=== PATIENT | female | born 1960 | race Caucasian/White ===

== ENCOUNTER → 2017-09-26 | Outpatient (CLI) | payer OTHER | END | disposition home or self-care (01) | LOC: KCIC MRI 08:08 | DX: M75.112 Incomplete rotator cuff tear or rupture of left shoulder, not specified as traumatic (principal); M62.58 Muscle wasting and atrophy, not elsewhere classified, other site; M94.212 Chondromalacia, left shoulder; M25.412 Effusion, left shoulder | CPT/HCPCS: 73221 ==

== ENCOUNTER → 2017-12-24 | Outpatient (CLI) | payer OTHER ==
[~2017-12-24] MED LIST: ASPI1TAB21 PO; ATOR40TA59 PO; INSU300I SQ; METF500T16 PO; MULT1CAP15 PO; OMEG1CAP27 PO; SITA100T PO; UBID100C26 PO; VITA1CAP PO; VITA400C36 PO
--- NOTE | 2017-12-24 09:58 | KCIC ---
MRI right shoulder without contrast dated 12/24/2017 8:45 AM Indication: Shoulder pain , pain on and off for months. Possible tendinitis.. Comparison: No comparison is available. Technique: Routine multiplanar multisequence imaging performed. . Findings: Moderate to severe increased T2 signal and thickening of the supraspinatus and infraspinatus portions of the rotator cuff. No fluid bright defect to suggest full-thickness tear. No cuff retraction. The subscapularis is thickened but otherwise intact. Mild hypertrophic change of the AC joint. Mild undersurface spurring. No significant subacromial/subdeltoid bursal fluid collection. Mild increased signal within the substance of the proximal long head biceps tendon. Extra articular portion courses within the bicipital groove. Moderate hypertrophic change of the glenohumeral joint with prominent marginal osteophytes. Thinning and surface irregularity of the articular cartilage throughout. Full-thickness cartilage loss of the anterior glenoid with subchondral cystic change. There is also probable full-thickness cartilage loss of the medial humeral head. Blunted morphology of the anterior inferior labrum. The posterior labrum is grossly intact. Small to moderate size glenohumeral joint effusion. No loose body. IMPRESSION: 1. Moderate to severe rotator cuff tendinopathy with no evidence of full-thickness tear. 2. Moderate degenerative arthrosis and chondral malacia the glenohumeral joint. There is full-thickness cartilage loss at the anterior glenoid and medial humeral head. 3. Degenerative tearing of the anterior inferior labrum. 4. Mild AC joint arthropathy. 5. Mild biceps tendinosis. 6. Moderate size glenohumeral joint effusion. Electronically signed by: Pasha Banegas MD (12/24/2017 9:55 AM) [email or web address]
== END | disposition home or self-care (01) ==
LOC: KCIC MRI 08:11
PROVIDERS: ATTEND Orthopaedic Surgery Sports Medicine
DX: S43.491A Other sprain of right shoulder joint, initial encounter (principal); X58.XXXA Exposure to other specified factors, initial encounter; Y93.89 Activity, other specified; Y92.89 Other specified places as the place of occurrence of the external cause; Y99.8 Other external cause status
CPT/HCPCS: 73221

== ENCOUNTER → 2018-01-19 | Day surgery (SDC) | payer OTHER ==
[~2018-01-19] VITALS: Ht 172.7 cm; Wt 74.4 kg
[~2018-01-19] MED LIST changes: +BUPIVACAINE MPF 0.5% 30 ML VIAL. ONE; +DEXAMETHASONE SOD PHOS 20 MG/5 ML VIAL. ONE; +EPINEPHrine VIAL 30 MG/30 ML VIAL ONE; +FAMOTIDINE 20 MG/2 ML VIAL ONE; +GLYCOPYRROLATE 1 MG/5 ML VIAL. ONE; +HYDROmorphone 2 MG/ML VIAL IV PRN; +IV RINGERS,LACTATED 1000ML 1,000 ML IV SCH; +LIDOCAINE 1% PF 2 ML VIAL. ID PRN; +LIDOCAINE 1% PF 30 ML VIAL. ONE; +LIDOCAINE 2% PF Vial for OR 5 ML VIAL. ONE; +MIDAZOLAM HCL/PF 2 MG/2 ML VIAL. ONE; +MORPHINE SULFATE 2 MG/ML VIAL. IV PRN; +NEOSTIGMINE METHYLSULFATE 5 MG/5 ML SYRINGE. ONE; +ONDANSETRON PF 4 MG/2 ML VIAL. IV PRN; +ONDANSETRON PF 4 MG/2 ML VIAL. ONE; +PROCHLORPERAZINE 10 MG/2 ML VIAL. IV PRN; +PROPOFOL 20 ML IV ONE; +ROCURONIUM 50 MG/5 ML VIAL. ONE; +ROPIVacaine 0.5% PF 20 ML VIAL. ONE; +SEVOFLURANE 61 TO 120 MINUTES. IH ONE; +ePHEDrine PF IN SALINE 50 MG/5 ML DISP.SYRIN IV ONE; +fentaNYL PF VIAL 100 MCG/2 ML VIAL IV PRN; +fentaNYL PF VIAL 100 MCG/2 ML VIAL ONE; +oxyCODONE/APAP 5/325 1 TAB TABLET PO ONE
--- NOTE | 2018-01-19 11:04 | DISCH ---
DISCHARGE INSTRUCTIONS Condition on Discharge Condition on Discharge: Stable Activity After Discharge Activity Instructions for Disc: Other, see below Other activity instructions: arm to remain in sling Bathing Instructions: Shower-keep dressing dry Weight Bearing Status after Di: Non weight bearing Diet after Discharge Diet after Discharge: Regular Wound Incision Care Wound/Incision Care: Ice to area for comfort, Keep wound/cast CDI, Change dressing Other wound/incision instructi: ok to change dressing after [address] after DC Call your doctor for: Concerns you may have Follow-Up Follow up with: Dayami in 2 wks JACK FISH II, MD Jan 19, 2018 11:04
--- NOTE | 2018-01-19 11:13 | PDOC4 ---
Operative Note Operative Note Date of procedure: 01/19/2018 Surgeon: Gregorio Kirkpatrickt.: Prashanth Rush APRN Preoperative diagnosis: Incomplete left shoulder rotator cuff tear, primary glenohumeral degenerative joint disease Postoperative diagnosis: Same Procedure performed: Arthroscopic rotator cuff repair, single anchor Anesthesia: Gen. plus regional nerve block Findings: Intact labrum circumferentially with small amount of degenerative tearing Near full-thickness cartilage loss at large portion of the humeral head Grade 2-3 changes a glenoid High-grade incomplete tear of supraspinatus Intact biceps tendon No loose bodies Remainder rotator cuff intact Blood loss: 10 mL Components inserted: Daley and nephew helacoil suture anchor Complications: None Reason for procedure: Patient is very pleasant 57-year-old female who had tried and failed conservative therapies including injections, anti-inflammatories and physical therapy for her persistent and worsening left shoulder pain. Clinical and radiographic examination were consistent with the above preoperative diagnosis. On physical exam and history, it seemed that rotator cuff pain was causing her more problems than pain at rest and we had a discussion of the risks , benefits, and alternatives the above surgery and she wished to proceed. Description of procedure: Patient was greeted in the preoperative area by myself for the correct extremity was verified and marked. She was taken to the preoperative holding area where a regional nerve block was placed by the anesthesiology team. She was then taken back to the operative suite, antibiotic started as she was brought back, and once in the OR she was transferred gently supine to the operating table and secured the bed with all pressure points padded and set up in a beachchair position, large pillow under her legs and her C-spine was maintained in neutral position. We then proceeded to prep and drape right upper extremity and shoulder girdle in our usual sterile fashion including [place] at the periphery. I then palpated and marked surface anatomy and used a spinal needle to localize the posterior superior portal and incised skin in accordance with this. After this, I used the blunt arthroscopic trocar to gain access to the glenohumeral joint and followed by the camera. The camera was white balanced. Spinal needle used to localize an anterosuperior portal and skin was incised in accordance with this as well. This hole was dilated over a switching stick. I introduce my probe and conducted my diagnostic arthroscopy with the above-noted findings. After this, I inspected the leading edge of her supraspinatus, there was some fraying and so I placed a PDS suture through this. I then withdrew my arthroscopic instrumentation and repositioned into the subacromial space. I performed a bursectomy with combination of electrocautery device and shaver. I then inspected the area where the PDS suture exited and noted fraying at this area. I was easily able to violate the substance of the tendon with the blunt trocar. I then used the shaver at this area after removing my PDS suture to debride the tendon. I debrided down to the footprint. I inspected the tear after thorough debridement. I then placed my suture anchor all followed by my suture anchor. Backward traction confirmed good purchase. I then used a spinal needle to create an accessory anterolateral portal for suture management. I then used the first pass suture passing device to shuttle 2 suture limbs through in a simple configuration, taking care not to incarcerate the biceps tendon. I then tied these down with arthroscopic knot- tying techniques. This tear was stable to gentle rotation. I removed all excess arthroscopic fluid and the arthroscopic instrumentation. Portals were closed with simple interrupted 3-0 nylon. Shoulder was cleansed and dried and a sterile bulky dressing was applied followed by an abduction pillow sling. Patient tolerated surgery well. She was laid supine and transferred gently supine to the recovery room cart and taken to PACU in a stable and extubated condition. Postoperative plan is to discharge her home, nonweightbearing, we will get her started on physical therapy at the end of this week. She will see me in 2 weeks, sooner should a problem arise. GREGORIO FISH II, MD Jan 19, 2018 11:13
[2018-01-19 12:55] VITALS: BP 124/46
== END | disposition home or self-care (01) ==
LOC: SURG 08:37
PROVIDERS: ATTEND Orthopaedic Surgery Sports Medicine
DX: M75.112 Incomplete rotator cuff tear or rupture of left shoulder, not specified as traumatic (principal); M19.012 Primary osteoarthritis, left shoulder; E11.9 Type 2 diabetes mellitus without complications; E78.00 Pure hypercholesterolemia, unspecified; Z79.4 Long term (current) use of insulin; Z79.899 Other long term (current) drug therapy; Z79.82 Long term (current) use of aspirin; Z90.49 Acquired absence of other specified parts of digestive tract; Z72.89 Other problems related to lifestyle; Z98.890 Other specified postprocedural states
CPT/HCPCS: 29827; 82962; A7015; C1713; C1782; J0171; J0690; J1100; J2001; J2250; J2405; J2704; J2710; J2795; J3010; J3490; J7120